=== PATIENT | male | born 1980 ===

== ENCOUNTER 2019-03-15 11:02 | Emergency (ER) | payer OTHER ==
[2019-03-15 11:14] VITALS: BP 157/106
--- NOTE | 2019-03-15 11:26 | UC ---
Throat Pain/Nasal [place] HPI - HPI Summary HPI Summary: Started w/ L eye crusting, sore throat and sinusitis x3 days. Feels his throat is painful to swallow and red. Kids at home have also been sick. 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 denies allergies to pets, has dog at home. - History of Current Complaint Chief Complaint: UCEar Stated Complaint: EAR COMPLAINT Time Seen by Provider: 03/15/19 11:08 Hx Obtained From: Patient Pain Intensity: 8 Pain Scale Used: 0-10 Numeric Cough: None Associated Signs & Symptoms: Positive: Sinus Discomfort, Fever. Negative: Wheezing, Vomiting, Rash - Allergies/Home Medications Allergies/Adverse Reactions: Allergies Allergy/AdvReac Type Severity Reaction Status Date / Time No Known Allergies Allergy Verified 03/15/19 11:14 PMH/Surg Hx/FS Hx/Imm Hx Cardiovascular History: Hypertension - Surgical History Surgical History: None - Family History Known Family History: Negative: Cardiac Disease, Hypertension, Diabetes - Social History Alcohol Use: Rare Substance Use Type: None Smoking Status (MU): Never Smoked Tobacco Review of Systems All Other Systems Reviewed And Are Negative: Yes Constitutional: Positive: Fever. Negative: Chills, Fatigue Skin: Negative: Rash Eyes: Positive: Drainage - l, Eye Redness - L. Negative: Blurred Vision, Diplopia, Photophobia ENT: Positive: Sore Throat, Ear Ache, Sinus Congestion Respiratory: Positive: Negative Cardiovascular: Positive: Negative Gastrointestinal: Negative: Vomiting, Diarrhea Musculoskeletal: Negative: Myalgia Neurological: Negative: Headache Physical Exam Triage Information Reviewed: Yes Appearance: Other: - appears uncomforable Vital Signs: Initial Vital Signs Temp 100.4 F 03/15/19 11:10 Pulse 125 03/15/19 11:10 Resp 18 03/15/19 11:10 BP 157/106 03/15/19 11:10 Pulse Ox 98 03/15/19 11:10 Vital Signs Reviewed: Yes Eyes: Positive: Conjunctiva Inflamed - L, Discharge - left eye ENT: Positive: Pharyngeal erythema, Nasal congestion, TMs normal - bilat, Uvula midline. Negative: Tonsillar swelling, Tonsillar exudate Neck: Positive: Supple, Nontender, No Lymphadenopathy Respiratory Exam: Normal Cardiovascular Exam: Normal Neurological: Positive: Alert Skin: Negative: Rashes Throat Pain/Nasal Course/Dx - Course Course Of Treatment: Acute L eye conjunctivitis and sore throat w/ exposure to sick contacts. Assoc. w/ sinusitis and ear aches. Febrile and elevated BP for which I told him to f/u w/ pcp. + RAPID STREP. Will tx w/ po antibx and cover for opthal source/bacterial. NO concerning s/sx. - Differential Dx/Diagnosis Differential Diagnosis/HQI/PQRI: Pharyngitis, URI Provider Diagnosis: Pharyngoconjunctival fever Discharge - Sign-Out/Discharge Documenting (check all that apply): Patient Departure All imaging exams completed and their final reports reviewed: No Studies - Discharge Plan Condition: Good Disposition: HOME Prescriptions: Erythromycin OPTH OINT* [Erythromycin 0.5% OPTH OINT*] 1 applic LEFT EYE TID 10 Days #1 ophth.oint Penicillin VK TAB* [Penicillin VK 250 mg Tab*] 500 mg PO BID 10 Days #20 tab Patient Education Materials: Conjunctivitis (ED) Forms: *Work Release Referrals: Maximo Ace MD [Primary Care Provider] - Additional Instructions: You likely have a bacterial infection affecting your sinuses, eye, and throat. Your Strep test today was: POSITIVE. - Billing Disposition and Condition Condition: GOOD Disposition: Home
== END 2019-03-15 11:45 | disposition home or self-care (01) ==
LOC: UCEAST 11:02
DX: B30.2 Viral pharyngoconjunctivitis (principal); I10 Essential (primary) hypertension
CPT/HCPCS: 87651; 99212; G0463